=== PATIENT | male | born 1995 | race Caucasian/White ===

== ENCOUNTER → 2019-10-21 13:23 | Outpatient (CLI) | payer OTHER, SELFPAY ==
--- NOTE | ~2019-10-21 | XR_ITS ---
EXAMINATION: XR ankle LT min 3V, XR foot LT min 3V DATE: 10/21/2019 13:49 INDICATION: Left foot and ankle pain post injury TECHNIQUE: 1. Anteroposterior, mortise, additional oblique and lateral view of the left ankle were obtained. 2. Dorsoplantar, two oblique and lateral views of the left foot were obtained. COMPARISON: None. FINDINGS: Small minimally displaced flake-like avulsion fracture along the dorsal margin of the head of the lucio us. No other fractures identified. Alignment remains essentially anatomic. Joint spaces are normal. S mall sclerotic bone island in the cuboid. No left ankle joint effusion. Soft tissue swelling over the dorsal lateral aspect of the hindfoot. IMPRESSION: 1. Likely Chopart joint injury with small minimally displaced flake-like avulsion fracture at the nanette crystal aspect of the head of the talus. Reviewed, dictated and finalized at location B. IMPRESSION: 1. Likely Chopart joint injury with small minimally displaced flake-like avulsi on fracture at the dorsal aspect of the head of the talus.
== END ==
PROVIDERS: PCP Family Medicine; Visit Provider Family Medicine
DX: S99.919A Unspecified injury of unspecified ankle, initial encounter (principal); S99.929A Unspecified injury of unspecified foot, initial encounter; X58.XXXA Exposure to other specified factors, initial encounter
CPT/HCPCS: 73610; 73630

== ENCOUNTER 2020-01-08 06:54 | Outpatient (NON) | payer OTHER, SELFPAY ==
[2020-01-09 06:47] LABS: SARS-CoV-2 RNA PCR Negative
== END 2020-01-08 06:55 ==
LOC: ANHCOVIDDT 07:06
PROVIDERS: PCP Family Medicine; Visit Provider Family Medicine
DX: R05 Cough (principal); R43.2 Parageusia; R43.0 Anosmia; R50.9 Fever, unspecified; R51.9 Headache, unspecified; Z20.828 Contact with and (suspected) exposure to other viral communicable diseases
CPT/HCPCS: 87635; C9803; U0003

== ENCOUNTER 2020-02-21 02:11 | Emergency (ER) | payer OTHER, SELFPAY ==
[2020-02-21 02:13] VITALS: BP 159/112; PULSE 117; RESP 20; TEMP 36.4; O2SAT 97
--- NOTE | 2020-02-21 04:06 | ED.GENADULT ---
HPI - General Adult General Chief complaint: Wound/Laceration Stated complaint: chin lac Time Seen by Provider: 02/21/20 02:20 History of Present Illness HPI narrative: Patient a 24-year-old gentleman who presents emerged part with chief complaint of facial laceration. Patient reports he was drinking out of a glass that was broken and it caused a laceration in his mouth his lips and his chin. Patient reports he is up-to-date on his last tetanus reports no other injuries reports he has been having a little bit to drink tonight. Patient reports that there is no foreign body Related Data Allergies Allergy/AdvReac Type Severity Reaction Status Date / Time No Known Drug Allergies Allergy Mild NON Verified 02/21/20 02:15 Review of Systems Review of Systems: Narrative: A 10 system review of systems was completed on the patient and is negative except for what is stated in the HPI. Nursing and ancillary documentation was reviewed. [facility] Past Medical History Medical History (Updated 02/21/20 @ 04:11 by Ward Iglesias MD) Sprain of left foot Surgical History Surgical History History of knee surgery 2009 Family History Family History Grandparent Family history of lung cancer Social History Social History Alcohol intake: current Exam Narrative: Exam Narrative: GENERAL: Well-appearing, well-nourished, and in no acute distress. HEAD: Normocephalic, there is 1/2 cm intraoral laceration that gapes. There is a 1 cm laceration to the chin and there is a another half centimeter laceration to the inferior chin. EYES: PERRLA and EOMI. ENT: Nares clear, no rhinorrhea or epistaxis. Mucous membranes moist. NECK: Supple. CHEST: Clear to auscultation. No respiratory distress. HEART: Regular rate and rhythm. No murmur heard. Normal peripheral pulses. ABDOMEN: Soft, nontender, nondistended, normal active bowel sounds. EXTREMITIES: Normal range of motion. No edema. SKIN: Warm, dry, no rash. NEURO: No focal deficits. Alert and oriented x3. PSYCH: Normal mood and affect. Course Vital Signs Vital signs: Vital Signs Temperature 36.4 C L 02/21/20 02:13 Pulse Rate 117 H 02/21/20 02:13 Respiratory Rate 20 02/21/20 02:13 Blood Pressure 159/112 H 02/21/20 02:13 Pulse Oximetry 97 02/21/20 02:13 Temperature 36.4 C L 02/21/20 02:13 Pulse Rate 117 H 02/21/20 02:13 Respiratory Rate 20 02/21/20 02:13 Blood Pressure 159/112 H 02/21/20 02:13 Pulse Oximetry 97 02/21/20 02:13 Procedures Laceration Laceration 1: Date: 02/21/20 Time: 04:08 Site: face Size (cm): 1 Description: linear Depth: simple, single layer Local Anesthetic: lidocaine 1% and with epi Amount of anesthesia used (mL): 2 Pre-repair: wound explored and irrigated ====== Skin Level ====== Skin layer closed with: prolene Size (cm): 5-0 Number of sutures: 3 Technique: simple, interrupted ====== Subcutaneous Layer ====== ====== Muscle Layer ====== ====== Tendon Layer ====== Laceration 2: Date: 02/21/20 Time: 04:08 Site: other (Inner lip) Size (cm): 1 Description: linear Depth: simple, single layer Local Anesthetic: lidocaine 1% and with epi Amount of anesthesia used (mL): 1 Pre-repair: wound explored and irrigated ====== Skin Level ====== Skin layer closed with: vicryl Size (cm): 4-0 Number of sutures: 2 Technique: simple, interrupted ====== Subcutaneous Layer ====== ====== Muscle Layer ====== ====== Tendon Layer ====== Laceration 3: Date: 02/21/20 Time: 04:09 Site: face Size (cm): 0.5 Description:
== END 2020-02-21 04:20 | disposition home or self-care (01) ==
PROVIDERS: Emergency Provider Emergency Medicine; PCP Family Medicine
DX: S01.81XA Laceration without foreign body of other part of head, initial encounter (principal); S01.512A Laceration without foreign body of oral cavity, initial encounter; W25.XXXA Contact with sharp glass, initial encounter
CPT/HCPCS: 12011; 99282

== ENCOUNTER → 2020-03-30 06:50 | Outpatient (CLI) | payer OTHER, SELFPAY ==
[2020-03-30 22:35] LABS: SARS-CoV-2 RNA PCR Negative
== END ==
PROVIDERS: PCP Family Medicine; Visit Provider Family Medicine
DX: Z20.822 Contact with and (suspected) exposure to COVID-19 (principal); J02.9 Acute pharyngitis, unspecified; R05 Cough; R50.9 Fever, unspecified
CPT/HCPCS: C9803; U0003; U0005

== ENCOUNTER 2020-06-16 13:05 | Outpatient (CLI) | payer OTHER, SELFPAY | END 2020-06-16 13:06 | disposition home or self-care (01) | LOC: ANHCOVIDVC 13:05 | PROVIDERS: PCP Family Medicine | DX: Z23 Encounter for immunization (principal) | CPT/HCPCS: 0001A; 91300 ==

== ENCOUNTER → 2020-10-13 03:19 | Outpatient (CLI) | payer OTHER, SELFPAY ==
[2020-10-13 20:01] LABS: SARS-CoV-2 RNA PCR Negative
== END ==
PROVIDERS: PCP Family Medicine; Visit Provider Physician Assistant
DX: R50.9 Fever, unspecified (principal); R51.9 Headache, unspecified; Z20.822 Contact with and (suspected) exposure to COVID-19
CPT/HCPCS: C9803; U0003; U0005

== ENCOUNTER → 2021-01-05 02:25 | Outpatient (CLI) | payer OTHER, SELFPAY ==
[2021-01-05 18:39] LABS: SARS-CoV-2 RNA PCR Negative
== END ==
PROVIDERS: PCP Family Medicine; Visit Provider Family Medicine
DX: R68.89 Other general symptoms and signs (principal); Z20.822 Contact with and (suspected) exposure to COVID-19
CPT/HCPCS: C9803; U0003; U0005

== ENCOUNTER → 2021-02-23 02:59 | Outpatient (CLI) | payer OTHER, SELFPAY ==
[2021-02-23 20:55] LABS: SARS-CoV-2 RNA PCR Negative
== END ==
PROVIDERS: PCP Family Medicine; Visit Provider Family Medicine
DX: R68.89 Other general symptoms and signs (principal); Z20.822 Contact with and (suspected) exposure to COVID-19
CPT/HCPCS: C9803; U0003; U0005

== ENCOUNTER → 2023-12-03 16:06 | Outpatient (CLI) | payer SELFPAY ==
--- NOTE | ~2023-12-03 | XR_ITS ---
EXAMINATION: XR chest 2V DATE: 12/03/2023 16:18 INDICATION: Bronchitis, not specified as acute or chronic. TECHNIQUE: Frontal and lateral views of the chest were obtained on 3 radiographs. COMPARISON: Chest 2 views 04/29/2018 FINDINGS: There is no pneumonia, pleural effusion, or pneumothorax. The heart size is normal. IMPRESSION: 1. No acute cardiopulmonary disease. Reviewed, dictated and finalized at location A.
== END ==
LOC: EXPTRAD 16:07
PROVIDERS: PCP Nurse Practitioner Family; Visit Provider Nurse Practitioner Family
DX: J40 Bronchitis, not specified as acute or chronic (principal)
CPT/HCPCS: 71046